=== PATIENT | male | born 1960 | race Caucasian/White ===

== ENCOUNTER 2019-05-19 08:01 | Day surgery (SDC) | payer BC ==
[~2019-05-19] VITALS: Ht 180.3 cm; Wt 69.9 kg
[~2019-05-19 08:01] MED LIST: LISI20 PO; RXALBOI INH
== END 2019-05-19 10:30 | disposition home or self-care (01) ==
LOC: ORSCSDS 08:01
PROVIDERS: Surgery
PROC: 0DBM8ZX Excision of Descending Colon, Via Natural or Artificial Opening Endoscopic, Diagnostic (ICD-10-PCS; principal; 2019-05-19 09:45)
PROC: 0DBP8ZX Excision of Rectum, Via Natural or Artificial Opening Endoscopic, Diagnostic (ICD-10-PCS; principal; 2019-05-19 09:45)
PROC: 0DBL8ZX Excision of Transverse Colon, Via Natural or Artificial Opening Endoscopic, Diagnostic (ICD-10-PCS; principal; 2019-05-19 09:45)
PROC: 0DBN8ZX Excision of Sigmoid Colon, Via Natural or Artificial Opening Endoscopic, Diagnostic (ICD-10-PCS; principal; 2019-05-19 09:45)
DX: K62.5 Hemorrhage of anus and rectum (principal); Z80.0 Family history of malignant neoplasm of digestive organs; D12.3 Benign neoplasm of transverse colon; K63.5 Polyp of colon; K62.1 Rectal polyp; K57.30 Diverticulosis of large intestine without perforation or abscess without bleeding; I10 Essential (primary) hypertension; K21.9 Gastro-esophageal reflux disease without esophagitis; F17.210 Nicotine dependence, cigarettes, uncomplicated; Z87.891 Personal history of nicotine dependence; Z79.899 Other long term (current) drug therapy
CPT/HCPCS: 88305; J2704; J7120

== ENCOUNTER 2019-06-09 05:43 | Day surgery (SDC) | payer OTHER ==
[~2019-06-09] VITALS: Ht 177.8 cm; Wt 70.5 kg
--- NOTE | 2019-06-09 06:58 | NUR ---
Lungs clear T/O to Auscultation.
--- NOTE | 2019-06-09 06:58 | NUR ---
History, Chart, Medications and Allergies reviewed before start of procedure. Patient confirms NPO status and agrees with scheduled surgery. Patient States Post-Procedure ride home has been arranged with his friend, Brenden.
--- NOTE | 2019-06-09 09:22 | NUR ---
ARRIVED FROM PACU ALREADY DRINKING COFFEE. DRESSING CDI ALERT ORIENTED.
--- NOTE | 2019-06-09 09:57 | NUR ---
UP AND DRESSED AT THIS TIME DRESSING REMAINS CDI. Discharge instructions reviewed with patient. Patient verbalizes understanding. Copy given to patient to take home. Patient States Post-Procedure ride home has been arranged. Discharged via wheelchair to private car for ride home.
== END 2019-06-09 22:45 | disposition home or self-care (01) ==
LOC: ORSCMMR 05:43 → ORD 07:30 → ORSCMMR 07:30
PROVIDERS: Surgery
PROC: 0YU60JZ Supplement Left Inguinal Region with Synthetic Substitute, Open Approach (ICD-10-PCS; principal; 2019-06-09 07:30)
DX: K40.90 Unilateral inguinal hernia, without obstruction or gangrene, not specified as recurrent (principal); I10 Essential (primary) hypertension; F17.210 Nicotine dependence, cigarettes, uncomplicated; Z79.899 Other long term (current) drug therapy
CPT/HCPCS: C1781; J0690; J1100; J1885; J2250; J2405; J2704; J3010; J7120

== ENCOUNTER → 2024-07-13 | Outpatient (CLI) | payer MEDICARE, OTHER ==
[~2024-07-13] MED LIST changes: +Acetaminophen325 M1 PO; +IBUP400 PO; +Percocet 5-3251 EACH PO; +Robaxin750 MG PO
[2024-07-13 18:11] LABS: BASOPHILS ABSOLUTE AUTO 0.02 K/mm3 (0.00-0.23); BASOPHILS PERCENT AUTO 1 % (0-2); EOSINOPHILS ABSOLUTE AUTO 0.01 K/mm3 (0.00-0.68); EOSINOPHILS PERCENT AUTO 0 % (0-6); Hematocrit 40.2 % (37.0-53.0); Hemoglobin 13.2 g/dL (13.5-17.5); IMMATURE GRAN ABSOLUTE AUTO 0.02 K/mm3 (0.00-0.10); IMMATURE GRAN PERCENT AUTO 1 % (0-1); LYMPHOCYTES ABSOLUTE AUTO 1.52 K/mm3 (0.84-5.20); LYMPHOCYTES PERCENT AUTO 38 % (21-46); MONOCYTES ABSOLUTE AUTO 0.72 K/mm3 (0.16-1.47); MONOCYTES PERCENT AUTO 18 % (4-13); Mean Corpuscular HGB 29.7 pg (26.0-34.0); Mean Corpuscular HGB Conc 32.8 g/dL (31.5-36.5); Mean Corpuscular Volume 91 fL (80-100); Mean Platelet Volume 9.2 fL (9.1-12.4); NEUTROPHILS ABSOLUTE AUTO 1.69 K/mm3 (1.96-9.15); NEUTROPHILS PERCENT AUTO 42 % (41-73); Platelet Count 453 K/mm3 (150-400); RDW Coefficient Variation 17.5 % (11.7-14.2); RDW Standard Deviation 57.4 fL (35.1-46.3); Red Blood Cell Count 4.44 M/mm3 (4.30-5.90); White Blood Cell Count 3.98 K/mm3 (4.00-11.30)
[2024-07-13 19:53] LABS: Alanine Aminotransfer (ALT/SGP 27 U/L (12-78); Albumin, Blood 3.7 g/dL (3.4-5.0); Alk Phos 68 U/L (50-136); Anion Gap 11 mmol/L (3-11); Aspartate Aminotrans (AST/SGOT 23 U/L (12-37); Bilirubin, Total 0.4 mg/dL (0.1-1.0); Blood Urea Nitrogen 9 mg/dL (8-24); Bun/Creatinine Ratio 10.8 (12.0-20.0); CHOL/HDL RATIO 2.6; CO2, Blood 25 mmol/L (21-32); Chloride, Blood 100 mmol/L (98-108); Cholesterol 151 mg/dL (50-200); Creatinine, Blood 0.84 mg/dL (0.60-1.20); Globulin, Blood 3.7 g/dL (2.2-4.0); Glomerular Filtration Rate 97 (60-); Glucose, Blood 106 mg/dL (70-99); HDL Cholesterol 58 mg/dL (>39); LDL/HDL RATIO 1.4; Low Density Lipoprotein Chol 82 mg/dL (0-110); Potassium, Blood 4.5 mmol/L (3.5-5.5); Sodium, Blood 131 mmol/L (136-145); Total Protein, Blood 7.4 g/dL (6.4-8.2); Triglycerides 57 mg/dL (30-160); Very Low Density Lipoprot Chol 11 mg/dL (6-32)
== END | disposition home or self-care (01) ==
LOC: LAB SHORT 16:49 → LAB 16:49
PROVIDERS: Nurse Practitioner Family
DX: E78.2 Mixed hyperlipidemia (principal); E55.9 Vitamin D deficiency, unspecified; I10 Essential (primary) hypertension
CPT/HCPCS: 80053; 80061; 84443; 85025